=== PATIENT | female | born 1990 | race Caucasian/White ===

== ENCOUNTER 2018-09-05 15:50 | Inpatient (IN) | payer OTHER ==
[2018-09-05] MEDS ORDERED: MISOPROSTOL 200 MCG TAB PR PRN (16:15)
[2018-09-05] MEDS ORDERED: EPSOM SALT 454 GM TP PRN (16:15)
[2018-09-05] MEDS ORDERED: LR 1,000 ML IV PRN (16:15)
[2018-09-05] MEDS ORDERED: LIDOCAINE 1% 300 MG/30 ML SDV SC PRN (16:15)
[2018-09-05] MEDS ORDERED: OXYTOCIN/RINGERS LACTATE 1,000 ML IV PRN (16:15)
[2018-09-05] MEDS ORDERED: IBUPROFEN 600 MG TAB PO PRN (16:15)
[2018-09-05] MEDS ORDERED: OLIVE OIL 118 ML BTL MISC PRN (16:15)
[2018-09-05] MEDS ORDERED: AMMONIA AROMATIC 1 EACH AMP IH ONE (16:29)
[2018-09-05] MEDS ORDERED: LIDOCAINE 1% 300 MG/30 ML SDV ONE ×2 (16:29→17:41)
[2018-09-05] MEDS ORDERED: OLIVE OIL 118 ML BTL ONE (16:29)
[2018-09-05] MEDS ORDERED: MISOPROSTOL 200 MCG TAB ONE (16:29)
[2018-09-05] MEDS ORDERED: OXYTOCIN 10 UNIT/ML VIAL ONE ×2 (16:29→17:09)
[2018-09-05 16:37] LABS: PLATELET COUNT 231 10^3/uL (150-400)
--- NOTE | 2018-09-05 18:21 | PDGENHP ---
History and Physical History and Physical: H&P done post delivery due to quick/precipitous Care: [facility] HPI: Melita Bradley is a 28 yo with IUP @ 38-6 weeks that presents to L&D with complaints of contractions since 1400 and leaking fluid since 1530. She denies any VB. Reports +FM. EDC: 09/13/2018 which is based on LMP: 12/07/17 which is known and consistent with Ultrasound at 10 weeks. Her is complicated by: Rh negative, Rubella low immune, mild anemia Review of Systems: Constitutional: Denies any fever, chills, or fatigue HEENT: denies any visual changes, difficulty swallowing, hearing loss Cardiovascular: Denies any chest pain, palpitations, leg swelling Respiratory: denies any cough, wheezing, or shortness of breathe GI: Denies any nausea, vomiting, diarrhea, constipation : denies any dysuria, urgency, frequency, vaginal bleeding Musculoskeletal: denies any muscle or bone pain Skin: denies any rashes Neuro: denies any headache, seizures, lightheadedness, dizziness, or loss of consciousness Psychiatric: denies any depression, anxiety, or SI/HI thoughts HISTORY: Previous OB history: G1 Past medical history: rubella low immune Past surgical history: apicoectomy (front tooth) Social: Denies any alcohol, tobacco, or drug use. Family history: Not relevant Medications: PNV, zyrtec (PRN) Allergies (list reaction): NKDA LABS: Rh: A negative ABS: Neg Rubella: Immune HbsAg: NR HIV: NR VDRL: NR 1hr: 130 GC: Neg Chlamydia: Neg Pap: Normal GBS: negative BMI: (prepreg)21 PHYSICAL EXAM: Constitutional: WN, A&Ox3 HEENT: normocephalic atraumatic, supple Skin: Warm, dry, intact Heart: RRR, no murmur Chest: CTA-B Abdomen: Soft, nontender, gravid SVE: 4/90/0 Extremities: no edema, negative homans sign Neuro: grossly normal Psych: normal affect assessment: FHT baseline 120 +accels, variable decels, moderate variability Contractions: toco q 2 Assessment: * [id number] with IUP@ 38-6wks * active labor * SROM @ 1530 * GBS Negative * cat 2 FHR Tracing Plan: * admit to L&D * anticipate Today's visit was approximately 30 min, of which >50% of visit 20 min, was spent face to face with pt on direct counseling/coordination of care.
[2018-09-05] MEDS ORDERED: HYDROCORTISONE 0.5% CREAM TP PRN (18:24)
[2018-09-05] MEDS ORDERED: SIMETHICONE 80 MG TAB CHEW PO PRN (18:24)
[2018-09-05] MEDS ORDERED: ACETAMINOPHEN 325 MG TAB PO PRN (18:24)
--- NOTE | 2018-09-05 18:24 | OBDEL ---
Info Type: Vaginal Presentation at Delivery: Vertex L&D Analgesia/Anesthesia Type: None GBS+: No Indications for Delivery: Spontaneous Labor, SROM Vaginal Delivery - Delivery Provider Delivery Physician/CNM: Nandini Valdivia - Labor and Delivery Onset of Contractions Date: 09/05/18 Onset of Contractions Time: 14:00 Onset of Contractions Type: Spontaneous Rupture of Membranes Date: 09/05/18 Rupture of Membranes Time: 15:30 Rupture of Membranes Type: Spontaneous Amniotic Fluid Color: Clear Dilation Complete Date: 09/05/18 Dilation Complete Time: 16:50 Placenta Delivery Date: 09/05/18 Placenta Delivery Time: 17:23 Total Hours of Labor: 3 Laceration: Other (Specify) (bilateral labial) Repair: 4-0, Chromic Vaginal Sponge Count Correct: Yes Vaginal Needle Count Correct: Yes Vaginal Sweep Performed: Yes EBL: 300 Delivery Comment: delivered in hands/knees, dad helped with . Baby then handed to mom. pushed <30 minutes [place] Data ERROL: 09/13/18 Gestational Age: 38 week(s) and 6 day(s) Ivy Delivery Date: 09/05/18 Delivery Time: 17:13 Sex of Infant: Male Weight (gm): 3490 kg Score (1 Min): 8 Score (5 Min): 9 ICD10 Worksheet Patient Problems: Problems Problem Status Onset Labor, precipitous, delivered Acute (spontaneous vaginal delivery) Acute - ICD10 Problem Qualifiers (1) (spontaneous vaginal delivery) (2) Labor, precipitous, delivered
--- NOTE | 2018-09-05 21:37 | SOAPPROG ---
SOAP Progress Note Assessment/Plan: pt has h/o vasovagal response to blood (seeing blood) had episode of passing out x2 post delivery. uterus firm, bleeding WNL. VSS will cont to monitor. Pt to stay on labor and delivery until no longer passing out with sight of blood. will move to mom baby after pt able to get up to restroom. Objective: Laboratory Results 09/05/18 16:25 09/05/18 16:30 09/04/18 09/05/18 09/06/18 05:59 05:59 05:59 Output Total 300 Balance -300 ICD10 Worksheet Patient Problems: Problems Problem Status Onset Labor, precipitous, delivered Acute (spontaneous vaginal delivery) Acute - ICD10 Problem Qualifiers (1) (spontaneous vaginal delivery) (2) Labor, precipitous, delivered
[2018-09-06] MEDS: DOCUSATE SODIUM 100 MG CAP PO PRN (08:44)
[2018-09-06] MEDS: IBUPROFEN 600 MG TAB PO PRN ×2 (08:44→14:54)
--- NOTE | 2018-09-06 09:33 | OBPP ---
Progress Note Assessment/Plan: Assessment: Plan: 09/06/18 09:32 A) PPD #1 Sycope has resolved P) Move to floor. Continue to be careful with ambulation and call RN as indicated. Plan for discharge home tomorrow Subjective/ Course: 09/06/18 09:31 Doing much better. Has been up twice now to the bathroom without feeling dizzy or passing out. About to be moved from L & D floor to . Baby has been well and pain well controlled with medication. Objective: 09/05/18 16:25 09/05/18 16:30 Patient ABO/Rh A NEGATIVE 09/05/18 18:22 Uric Acid 4.8 mg/dL (2.5-6.8) 09/05/18 16:30 Total Bilirubin 0.3 mg/dL (0.1-1.4) 09/05/18 16:30 Conjugated Bilirubin 0.2 mg/dL (0.0-0.5) 09/05/18 16:30 Unconjugated Bilirubin 0.1 mg/dL (0.0-1.1) 09/05/18 16:30 AST 34 IU/L (14-46) 09/05/18 16:30 ALT 25 IU/L (9-52) 09/05/18 16:30 Lactate Dehydrogenase 510 IU/L (313-618) 09/05/18 16:30 Temp Pulse Resp BP Pulse Ox 37.1 C 56 L 18 121/76 H 09/06/18 07:45 09/06/18 07:45 09/06/18 07:45 09/06/18 07:45 Breasts soft, nipples intact Mild perineal edema present Uterine Position/Fundal Height: Umbilicus -2 Uterine Tone: Firm
[2018-09-07] MEDS: IBUPROFEN 600 MG TAB PO PRN ×2 (01:44→08:36)
[2018-09-07] MEDS: DOCUSATE SODIUM 100 MG CAP PO PRN (08:36)
[2018-09-07 09:22] VITALS: BP 128/80
--- NOTE | 2018-09-07 10:27 | OBGCSDC ---
General Delivery Information - General Info : 1 Para: 1 Abortions: 0 Type: Vaginal L&D Analgesia/Anesthesia Type: None Admission Date: 09/05/18 Labs: Patient ABO/Rh A NEGATIVE 09/05/18 18:22 Hct 38.4 % (38.0-47.0) 09/05/18 16:25 - Hospital Course : 09/06/18 09:31 Doing much better. Has been up twice now to the bathroom without feeling dizzy or passing out. About to be moved from L & D floor to . Baby has been well and pain well controlled with medication. 09/07/18 11:00 S) Pt doing well, reports min pain and bleeding. she is ambulating and voiding without difficulty. She is . She desires discharge home today. O) VSS, afebrile constitutional: WNWF, A&Ox3 HEENT: normocephalic, atraumatic, supple Heart: RRR, No murmur Chest: CTA-B Abdomen: Soft, nontender Uterus: Firm at U-2 Lochia: Minimal rubra Perineum: Intact, healing well Extremities: Trace edema, and negative Tabitha's sign Neuro: Grossly normal A) 28 year-old P1 S/P PPD#2 P) Discharge home today Continue Pelvic rest x6wks Discussed danger signs (infection, preeclampsia, depression, heavy bleeding, etc) RTO in 2/4/6 weeks Vaginal - Delivery Provider Delivery Physician/CNM: Nandini Valdivia - Diagnosis Labor: Spontaneous Rupture of Membranes Type: Spontaneous Amniotic Fluid Color: Clear Laceration: Other (Specify) (bilateral labial) Repair: 4-0, Chromic - Delivery EBL: 300 Data ERROL: 09/13/18 Gestational Age: 39 week(s) and 1 day(s) Ivy Delivery Date: 09/05/18 Delivery Time: 17:13 Sex of Infant: Male Weight (gm): 3498 g Score (1 Min): 8 Score (5 Min): 9 Discharge Information - Discharge Information Prescriptions: Ibuprofen [Motrin (*)] 600 mg PO Q6HRS PRN #30 tab PRN Reason: Pain, Mild Able To Take Po Docusate Sodium [Colace 100 MG (*)] 100 mg PO BID PRN #60 cap PRN Reason: Constipation Condition: Good
== END 2018-09-07 15:09 | disposition home or self-care (01) | DRG 807 ==
LOC: FLD 15:50 → FOB 09-06 09:36
PROVIDERS: ADMIT Advanced Practice Midwife; ATTEND Advanced Practice Midwife
PROC: 10E0XZZ Delivery of Products of Conception, External Approach (ICD-10-PCS; principal; 2018-09-05)
DX: O62.3 Precipitate labor (principal); Z37.0 Single live birth; Z3A.38 38 weeks gestation of pregnancy
CPT/HCPCS: J2590